=== PATIENT | female | born 1990 | race Two or more races ===

== ENCOUNTER 2022-12-02 17:35 | Emergency (ER) | payer MEDICAID, SELFPAY ==
--- NOTE | ~2022-12-02 | US_ITS ---
EXAMINATION: US PELVIS CLINICAL INFORMATION: Heavy vaginal bleeding; the last menstrual period is not specified. COMPARISON: None available. TECHNIQUE: Ultrasound of the pelvis is performed using both transabdominal and transvaginal transducers along with Doppler. Transvaginal imaging is performed due to inadequate visualization transabdominally. FINDINGS: Uterus: The uterus is anteverted and anteflexed. The uterus measures 7.2 x 3.6 x 4.6 cm. Nabothian cysts are seen within the cervix. The double wall endometrial thickness is 0.8 mm. A 6 x 3 x 5 mm endometrial polyp is seen. The uterus is smooth in contour and has normal myometrial echogenicity. No visible fibroid. Adnexa: Both ovaries are visualized. There is normal color flow to the adnexa. There is no ovarian torsion. There is no pelvic ascites or fluid collection. Right ovary measures 2.8 x 2.1 x 2.1 cm, volume 6.5 mL. Left ovary measures 2.5 x 1.8 x 1.4 cm, volume 5.0 mL. US/US pelvic and transvaginal IMPRESSION: 1. A 6 mm endometrial polyp is noted. Gynecology evaluation and management are recommended, with consideration for tissue sampling. 2. Nabothian cysts are seen within the cervix.
[2022-12-02 17:57] VITALS: BP 116/72; PULSE 78; RESP 16; TEMP 36.2; O2SAT 100; BMI 28.1
[2022-12-02 18:17] LABS: MANUAL DIFF FLAG NO
[2022-12-02 18:33] LABS: Alanine Aminotransferase 10 U/L (0-31); Albumin Level 4.3 g/dL (3.5-5.0); Alkaline Phosphatase 81 U/L (39-117); Anion Gap 13 (12-20); Aspartate Amino Transferase 16 U/L (5-31); Bilirubin Total 0.4 mg/dL (0.0-1.0); Blood Urea Nitrogen 10 mg/dL (9-16); Calcium 10.1 mg/dL (8.4-10.2); Carbon Dioxide 24 mmol/L (22-29); Chloride 106 mmol/L (96-108); Estimated Glomerular Filt Rate > 60; Glucose Random 85 mg/dL (60-115); Potassium 3.6 mmol/L (3.3-5.1); Sodium 139 mmol/L (135-145); Total Protein 7.4 g/dL (6.5-8.0)
[2022-12-02 18:34] LABS: Basophils Absolute Auto 0.1 X10*3/uL (0.0-0.2); Basophils Percent Auto 0.7 % (0-2); Eosinophils Absolute Auto 0.2 X10*3/uL (0.0-0.4); Eosinophils Percent Auto 2.3 % (0-4); Hematocrit 38.6 % (37.0-47.0); Imm Gran Abs Auto 0.02 X10*3/uL (0.00-0.03); Imm Gran Pct Auto 0.2 % (0.0-0.4); Lymphocytes Absolute Auto 2.1 X10*3/uL (1.2-4.9); Lymphocytes Percent Auto 24.3 % (20-40); Mean Corpuscular HGB Conc 33.7 g/dl (31.0-35.0); Mean Corpuscular Hemoglobin 27.3 pg (27.0-33.0); Mean Corpuscular Volume 81.1 fL (80.0-98.0); Mean Platelet Volume 9.8 fL (9.4-12.3); Monocytes Absolute Auto 0.7 X10*3/uL (0.1-1.2); Neutrophils Absolute Auto 5.6 x10*3/uL (2.0-8.3); Neutrophils Percent Auto 64.5 % (45-73); Platelet Count 383 X10*3/uL (160-400); Red Blood Count 4.76 X10*6/uL (4.20-5.50); White Blood Count 8.7 X10*3/uL (4.8-10.8)
[2022-12-02 18:39] LABS: HCG Quantitative < 2 mIU/mL
--- NOTE | 2022-12-02 18:57 | ED.FEMALEGU ---
HPI - Female Genitourinary General Chief complaint: Vaginal Bleeding Stated complaint: vaginal bleeding,pain Time Seen by Provider: 12/02/22 20:49 Source: patient Mode of arrival: ambulatory History of Present Illness HPI Narrative: 32-year-old female without significant past medical history presents with irregular menses and states that last night she started having brown discharge that then stopped and then this morning she began having what she thought was her menstrual cycle but she was having very heavy flow with passage of clots and she had concerns that she may be experiencing a spontaneous and had some lower pelvic pain. She denies any associated fever, chills, vaginal discharge otherwise and denies any urinary symptoms. Related Data Allergies Allergy/AdvReac Type Severity Reaction Status Date / Time No Known Allergies Allergy Verified 12/02/22 18:00 Review of Systems Review of Systems: Pertinent positives and negatives as stated in HPI [facility] Past Medical History Source: nursing notes reviewed Social History Social History Alcohol intake: never Smoked in Last 30 Days: No Use of substances other than those prescribed or required for medical reasons: No Advance Directives: No Advance Directives Information Provided: Yes Patient : No Physical Exam Vital Signs: Vital Signs: Last Vital Signs Temp 97.2 F 12/02/22 17:57 Pulse 69 12/02/22 20:10 Resp 14 12/02/22 20:10 BP 115/64 12/02/22 20:10 Pulse Ox 98 12/02/22 20:10 O2 Del Method Room Air 12/02/22 17:57 BMI result Body Mass Index 28.1 VITAL SIGNS: Reviewed. GENERAL: Well developed, well nourished, in no acute distress. HEAD: Normocephalic/atraumatic EYES: PERRLA, EOMI EARS: Ext canals without abnormality NOSE: Nares patent bilateral OROPHARYNX: no oral lesions noted, posterior pharynx clear NECK: Supple, no adenopathy LUNGS: Normal breath sounds. No adventitious sounds or accessory muscle use. SpO2<98> CARDIOVASCULAR: Regular rate and rhythm without noted murmurs ABDOMEN: Soft, non-tender, non-distended with bowel sounds. MUSCULOSKELETAL: No tenderness, deformities, or effusions noted on gross inspection. EXTREMITIES: No cyanosis, clubbing or edema. SKIN: Inspection of the skin reveals no rashes NEUROLOGIC: Alert and oriented x 4. Strength and sensation to light touch were grossly intact x 4. Course Course Course Narrative: This is an RME: Additional HPI, ROS, PE not included below will be deferred to primary provider.32 year old female prsents w/ heavy vaginal bleeding X few days. Patient reports passing dark red clots and bleeding through > 1 pad / hour. No abdominal pain or pelvic pain. Not on birthcontrol unsure if Plan- labs, urine, imaging Medical Decision Making Medical Decision Making MDM Narrative: 32-year-old female with history and clinical presentation and DDX: Ectopic, SAB, UTI, renal colic, torsion. At the time of my evaluation patient was completely asymptomatic, I reviewed all investigations ultrasound is not demonstrating any torsion or IUP, beta-hCG is negative, chemistries and hematology is a are without derangements. Patient states that the bleeding has slowed down, there is incidental finding of a 6 mm endometrial polyp with recommendations for outpatient follow-up. All results discussed with patient bedside she is discharged home in stable condition. She is not currently experiencing any pain. Differential Diagnosis Please see the discussion above Admission/Observation Consideration of admission/observation: Escalation of care including admission/observation considered Lab Data Please see the discussion above 12/02/22 18:08 12/02/22 18:08 Labs: Lab Results 12/02/22 12/02/22 12/02/22 Range/Units 18:08 18:08 18:08 WBC 8.7 (4.8-10.8) X10*3/uL RBC 4.76 (4.20-5.50) X10*6/uL Hgb 13.0 (12.0-16.0) g/dl Hct 38.6 (37.0-47.0) % MCV 81.1 (80.0-98.0) fL MCH 27.3 (27.0-33.0) pg MCHC 33.7 (31.0-35.0) g/dl RDW 13.0 (11.0-16.0) % Plt Count 383 (160-400) X10*3/uL MPV 9.8 (9.4-12.3) fL Immature Gran % (Auto) 0.2 (0.0-0.4) % Neut % (Auto) 64.5 (45-73) % Lymph % (Auto) 24.3 (20-40) % Dougherty % (Auto) 8.0 (2-11) % Eos % (Auto) 2.3 (0-4) % Baso % (Auto) 0.7 (0-2) % Lymph # (Auto) 2.1 (1.2-4.9) X10*3/uL Dougherty # (Auto) 0.7 (0.1-1.2) X10*3/uL Eos # (Auto) 0.2 (0.0-0.4) X10*3/uL Baso # (Auto) 0.1 (0.0-0.2) X10*3/uL Abs Immat Gran (auto) 0.02 (0.00-0.03) X10*3/uL Absolute Neuts (auto) 5.6 (2.0-8.3) x10*3/uL Absolute Nucleated RBC 0.000 (0.0-0.012) X10*3/uL Nucleated RBC % (auto) 0.0 (0.0-0.2) /100WBC Sodium 139 (135-145) mmol/L Potassium 3.6 (3.3-5.1) mmol/L Chloride 106 (96-108) mmol/L Carbon Dioxide 24 (22-29) mmol/L Anion Gap 13 (12-20) BUN 10 (9-16) mg/dL Creatinine 0.62 (0.5-1.4) mg/dL Estim Creat Clear Calc 97.0 Estimated GFR > 60 Random Glucose 85 (60-115) mg/dL Calcium 10.1 (8.4-10.2) mg/dL Total Bilirubin 0.4 (0.0-1.0) mg/dL AST 16 (5-31) U/L ALT 10 (0-31) U/L Alkaline Phosphatase 81 (39-117) U/L Total Protein 7.4 (6.5-8.0) g/dL Albumin 4.3 (3.5-5.0) g/dL Beta HCG, Quant < 2 mIU/mL Blood Type 12/02/22 Range/Units 18:12 WBC (4.8-10.8) X10*3/uL RBC (4.20-5.50) X10*6/uL Hgb (12.0-16.0) g/dl Hct (37.0-47.0) % MCV (80.0-98.0) fL MCH (27.0-33.0) pg MCHC (31.0-35.0) g/dl RDW (11.0-16.0) % Plt Count (160-400) X10*3/uL MPV (9.4-12.3) fL Immature Gran % (Auto) (0.0-0.4) % Neut % (Auto) (45-73) % Lymph % (Auto) (20-40) % Dougherty % (Auto) (2-11) % Eos % (Auto) (0-4) % Baso % (Auto) (0-2) % Lymph # (Auto) (1.2-4.9) X10*3/uL Dougherty # (Auto) (0.1-1.2) X10*3/uL Eos # (Auto) (0.0-0.4) X10*3/uL Baso # (Auto) (0.0-0.2) X10*3/uL Abs Immat Gran (auto) (0.00-0.03) X10*3/uL Absolute Neuts (auto) (2.0-8.3) x10*3/uL Absolute Nucleated RBC (0.0-0.012) X10*3/uL Nucleated RBC % (auto) (0.0-0.2) /100WBC Sodium (135-145) mmol/L Potassium (3.3-5.1) mmol/L Chloride (96-108) mmol/L Carbon Dioxide (22-29) mmol/L Anion Gap (12-20) BUN (9-16) mg/dL Creatinine (0.5-1.4) mg/dL Estim Creat Clear Calc Estimated GFR Random Glucose (60-115) mg/dL Calcium (8.4-10.2) mg/dL Total Bilirubin (0.0-1.0) mg/dL AST (5-31) U/L ALT (0-31) U/L Alkaline Phosphatase (39-117) U/L Total Protein (6.5-8.0) g/dL Albumin (3.5-5.0) g/dL Beta HCG, Quant mIU/mL Blood Type A Positive Radiology Impression Radiologist Impression: No IUP, otherwise my interpretation is in agreement with radiology's impression. Discharge Plan Discharge Clinical Impression: Dysfunctional uterine bleeding, Menstrual pain, Endometrial polyp Patient Disposition: Home, Self-Care Instructions: Dysfunctional Uterine Bleeding (ED), Dysmenorrhea (ED), Endometrial Polyps (DC) Additional Instructions: 1. Recommend [id number] Tylenol and/or ibuprofen as needed for menstrual pain. 2. 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 Return to the ER for any worsening symptoms. Referrals: Aden Saleem MD [Physician] - (6mm endometrial polyp)
[2022-12-02 20:10] VITALS: BP 115/64; PULSE 69; RESP 14; O2SAT 98
--- NOTE | 2022-12-02 20:19 | PC.NURSE ---
Pt A&Ox4, denies any pain at this time. Pt reports brown color blood starting yesterday toothpaste texture and today BRB with quarter size cloths, having to change pad every hour. Pt reports having very irregular periods not on control, denies any ABD pain/cramps, denies N/V/D, denies dizziness/ SOB. VSS.
--- NOTE | 2022-12-02 21:02 | PC.NURSE ---
Pt ambulated to BR independently with steady gait. Urine sample collected and sent to lab.
[2022-12-02 21:30] VITALS: BP 112/72; PULSE 84; RESP 16; TEMP 36.6; O2SAT 100
[2022-12-02 21:45] LABS: Appearance Urine Cloudy; Glucose Urine UA Negative (Negative); Leukocyte Esterase Urine Negative (Negative); UMIC TRIGGER UACC YES; Urine Blood Large (3+) (Negative); Urine Ketones Negative (Negative); Urine Protein 30 (1+) mg/dL (Neg-Trace)
[2022-12-02 21:50] LABS: Color Urine RED
[2022-12-02 22:02] LABS: Nitrite Urine Negative (Negative)
[2022-12-02 22:09] LABS: Bacteria Urine None Seen (None Seen); Hyaline Casts Urine 0-2 /LPF (0-2); RBC Urine >20 /HPF (0-2); Squamous Epithelial Cell Urine 0-2 /HPF (0-2); WBC Urine 0-5 /HPF (0-5)
== END 2022-12-02 21:37 | disposition home or self-care (01) ==
PROVIDERS: Emergency Provider Student in an Organized Health Care Education/Training Program
DX: N93.8 Other specified abnormal uterine and vaginal bleeding (principal); N84.0 Polyp of corpus uteri; R10.2 Pelvic and perineal pain; Z79.899 Other long term (current) drug therapy
CPT/HCPCS: 36415; 76830; 76856; 80053; 81001; 81003; 84702; 85025; 86850; 86900; 86901; 99284